=== PATIENT | female | born 1965 | race African-American/Black ===

== ENCOUNTER 2019-08-24 15:32 | Emergency (ER) | payer OTHER ==
[2019-08-24 15:39] VITALS: BMI 41.5
--- NOTE | 2019-08-24 16:16 | PDOC ---
History of Present Illness - General History Source: Patient Exam Limitations: No Limitations - History of Present Illness Initial Comments: 08/24/19 16:21 54 yo female pmh HTN (not taking medication for BP for 3 years, no insurance) presents to the ED after 2 days of left ear pain and 1 day of left facial droop. Pt states she had her flu shot 2 days and noted sudden onset sharp left ear pain and noted at 5 am yesterday morning, she had a left facial droop without changes in vision, CASTREJON, confusion, neck stiffness, N/V/F/C, ataxia, weakness or sensory deficits on 1 side of her body. Pt denies recent travel or being in a wooded area. Denies CP, SOB, abdominal pain, changes in bowel or bladder habits <John Hannah - Last Filed: 08/24/19 17:40> <Yaneli Huitron - Last Filed: 08/26/19 02:44> - General Chief Complaint: Facial Droop Stated Complaint: R/O CVA Time Seen by Provider: 08/24/19 15:55 Past History - Past Medical History COPD: No HTN: Yes - Psycho Social/Smoking Cessation Hx Smoking History: Never smoked Hx Alcohol Use: No Drug/Substance Use Hx: No <John Hannah - Last Filed: 08/24/19 17:40> <Yaneli Huitron - Last Filed: 08/26/19 02:44> - Past Medical History Allergies/Adverse Reactions: Allergies Allergy/AdvReac Type Severity Reaction Status Date / Time No Known Allergies Allergy Verified 08/24/19 15:39 Home Medications: Ambulatory Orders Acyclovir [Zovirax -] 400 mg PO 5XD #35 tablet 08/24/19 Amlodipine Besylate [Norvasc -] 5 mg PO DAILY #7 tablet 08/24/19 Ocular Lubricant Ophth Oint [Lacri-Lube Eye Ointment -] 1 applic OU DAILY #1 tube 08/24/19 Peg 400/Hypromellose/Glycerin [Artificial Tears Drops] 15 ml OP PRN #1 drops 08/04 Prednisone [Prednisone 50 MG TABLETS] 60 mg PO DAILY #7 tablet 08/24/19 Review of Systems - Review of Systems Constitutional: No: Chills, Fever HEENTM: No: Blurred Vision, Double Vision Respiratory: No: Shortness of Breath Cardiac (ROS): No: Chest Pain, Edema ABD/GI: No: Constipated, Diarrhea, Nausea, Vomiting : No: Burning, Dysuria, Frequency, Flank Pain Musculoskeletal: No: Muscle Weakness Neurological: Yes: Other (left facial droop). No: Headache, Numbness, Paresthesia, Tingling, Tremors, Weakness, Ataxia <John Hannah - Last Filed: 08/24/19 17:40> *Physical Exam - Vital Signs Last Vital Signs Temp Pulse Resp BP Pulse Ox 97.6 F 128 H 16 208/109 H 100 08/24/19 15:36 08/24/19 15:36 08/24/19 15:36 08/24/19 15:36 08/24/19 15:36 - Physical Exam General Appearance: Yes: Nourished, Appropriately Dressed. No: Apparent Distress HEENT: positive: EOMI, ABRAHAM, Normal Voice, TMs Normal, Pharynx Normal, Hearing Grossly Normal. negative: Photophobia, TM Erythema, Lesions Neck: positive: Supple. negative: Carotid bruit Respiratory/Chest: positive: Lungs Clear, Normal Breath Sounds. negative: Respiratory Distress, Accessory Muscle Use, Crackles, Rales, Rhonchi, Stridor, Wheezing Cardiovascular: positive: S1, S2, Tachycardia. negative: Edema, JVD, Murmur Vascular Pulses: Dorsalis-Pedis (R): 4+, Doralis-Pedis (L): 4+ Gastrointestinal/Abdominal: positive: Flat, Soft. negative: Pulsatile Mass, Protuberent, Distended, Guarding, Rebound, Tenderness Musculoskeletal: negative: CVA Tenderness Extremity: positive: Normal Capillary Refill, Normal Inspection, Normal Range of Motion Integumentary: positive: Normal Color, Dry, Warm Neurologic: positive: Fully Oriented, Alert, Normal Mood/Affect, Normal Response , Motor Strength 5/5, Facial Droop (left). negative: toucher up II-XII NML intact (CN 7 left not intact, otherwise, 2-12 intact), Numbness, Sensory Deficit, Finger to Nose (normal), Confused, Disoriented <John Hannah - Last Filed: 08/24/19 17:40> - Vital Signs Last Vital Signs Temp Pulse Resp BP Pulse Ox 98.6 F 104 H 23 H 202/103 H 100 08/24/19 18:14 08/24/19 18:14 08/24/19 18:14 08/24/19 18:14 08/24/19 18:14 <Yaneli Huitron - Last Filed: 08/26/19 02:44> ED Treatment Course - ADDITIONAL ORDERS Additional order review: Laboratory Results 08/24/19 18:02 POC Glucometer 133 08/24/19 18:02 POC Glucometer 133 - Medications Given in the ED: ED Medications Discontinued Medications Generic Name Dose Route Start Last Admin Trade Name Jerome PRN Reason Stop Dose Admin Acyclovir 400 mg 08/24/19 16:34 08/24/19 17:00 Zovirax - PO 08/24/19 16:35 400 mg ONCE ONE Administration Amlodipine Besylate 5 mg 08/24/19 17:14 08/24/19 17:25 Norvasc - PO 08/24/19 17:15 5 mg ONCE ONE Administration Prednisone 60 mg 08/24/19 16:35 08/24/19 17:00 Deltasone - PO 08/24/19 16:36 60 mg ONCE ONE Administration <Yaneli Huitron - Last Filed: 08/26/19 02:44> Medical Decision Making - Medical Decision Making 08/24/19 16:39 54 yo female pmh HTN (not taking medication for BP for 3 years, no insurance) presents to the ED after 2 days of left ear pain and 1 day of left facial droop. Pt states she had her flu shot 2 days and noted sudden onset sharp left ear pain and noted at 5 am yesterday morning, she had a left facial droop without changes in vision, CASTREJON, confusion, neck stiffness, N/V/F/C, ataxia, weakness or sensory deficits on 1 side of her body. Pt denies recent travel or being in a wooded area. Denies CP, SOB, abdominal pain, changes in bowel or bladder habits DDX INLT: Stroke vs [place] Neuro exam shows left sided facial droop with right forehead sparing when asked to raise eye brows. Otherwise, neuro exam normal Pt likely suffering from bells palsy, given steroids an antivirals, will dc home on those medication as well as artificial tears discussed case with Dr. Cohen , states he will be in the ED in 30 min for another pt and will assess at that time. 08/24/19 17:17 Dr. Cohen agrees pt suffering from bells palsy and will f/u in office as an outpatient Pt will be given PCP [facility] as well <John Hannah - Last Filed: 08/24/19 17:40> - Medical Decision Making please see attg documentation left peripheral CN VII palsy, forehead involved, so most consistent with peripheral bells and less likely CVA/stroke treating as palacio's f/u neuro, meds acyclovir, steroids, supportive measures, 08/26/19 02:43 <Yaneli Huitron - Last Filed: 08/26/19 02:44> Discharge - Discharge Information Problems reviewed: Yes - Admission No <John Hannah - Last Filed: 08/24/19 17:40> <Yaneli Huitron - Last Filed: 08/26/19 02:44> - Discharge Information Clinical Impression/Diagnosis: Palacio's palsy Condition: Stable Disposition: HOME - Additional Discharge Information Prescriptions: Acyclovir [Zovirax -] 400 mg PO 5XD #35 tablet Amlodipine Besylate [Norvasc -] 5 mg PO DAILY #7 tablet Ocular Lubricant Ophth Oint [Lacri-Lube Eye Ointment -] 1 applic OU DAILY #1 tube Peg 400/Hypromellose/Glycerin [Artificial Tears Drops] 15 ml OP PRN #1 drops Prednisone [Prednisone 50 MG TABLETS] 60 mg PO DAILY #7 tablet - Follow up/Referral Referrals: Robert Cohen MD [Staff Physician] - [facility] [place] [Provider Group] - Patient Discharge Instructions Patient Printed Discharge Instructions: DI for Palacio's Palsy, High Blood Pressure (Hypertension) (Alternative Therapy), Essential Hypertension Additional Instructions: Please see the Primary Doctor referred to you as soon as possible to have your blood pressure controlled. Take all the medication sent to your Pharmacy as prescribed. See the Neurologist referred to you and make an appointment in clinic. Return to the ER for new or concerning symptoms including but not limited to: changes in vision, headaches or weakness/sensory changes on 1 side of your body. you have been started on amlodipine low dose daily for management of your high blood pressure slowly. Use lacri lube at night time and use the artificial tears both purchased over the counter to lubricate your eyes and prevent corneal abrasion please keep your eye covered at nighttime when you sleep take the acyclovir five times a day for the next one week take the prednisone daily for the next 1 week, starting tomorrow evening Thank you - Post Discharge Activity Work/Back to School Note: Back to Work
[2019-08-24] MEDS ORDERED: ACYCLOVIR 400 MG TABLET PO ONE (16:34)
--- NOTE | 2019-08-24 16:34 | PDOC ---
Attending Attestation - Resident Resident Name: John Hannah - ED Attending Attestation I have performed the following: I have examined & evaluated the patient, The case was reviewed & discussed with the resident, I agree w/resident's findings & plan - HPI HPI: 08/24/19 16:33 54-year-old female with poorly controlled hypertension, has not followed up or taking any medications, presenting with left ear pain x2 days, associated with left facial palsy since yesterday. She cannot drink without drooling, left eye is unable to be closed. Denies any fevers or chills, focal paresthesias or weakness, altered mental status, seizure, cough, congestion, nausea vomiting or diarrhea. - Physicial Exam PE: 08/24/19 16:56 Agree with the resident's HPI and PE as documented in the electronic medical record. NAD, well appearing, EOMI, PERRL, nl conjunctiva, anicteric; bilateral T.M and auditory canal clear. neck supple. lungs clear, RRR, abdomen soft nontender. no rebound, guarding. Back nontender. DELEON x4, No peripheral edema. normal color for ethnicity, WWP. Alert, oriented appropriately. +left peripheral facial nerve palsy, unable to raise eyebrows, left lower facial droop. Strength prox and distally 5/5 throughout. Sensation grossly intact to light touch. DELEON x4. No cerebellar signs, no dysmetria, bilateral finger to nose and heel to mo equal and symmetric. Speech clear. 08/24/19 18:24 - Medical Decision Making 08/24/19 17:38 Vital Signs Temp Pulse Resp BP Pulse Ox 97.6 F 128 H 16 208/109 H 100 08/24/19 15:36 08/24/19 15:36 08/24/19 15:36 08/24/19 15:36 08/24/19 15:36 Symptoms are most consistent with a peripheral facial nerve palsy involving the left side, unilateral Palacio's palsy. Neurologically intact, no focal neurologic deficits aside from the left cranial nerve VII palsy. Alert and appropriately oriented, gait is stable, neurologic exam is within normal limits. Discussed case with neurologist on-call, Dr. Cohen - agree with plan We will treat patient with 1 wk course of steroids and acyclovir, eyepatch at nighttime, Lacri-Lube and artificial tears to maintain moisture in the affected left eye. Patient will follow-up outpatient with Dr Cohen. pt also with uncontrolled HTN< not not meds, due to 200s/100s, doubt any evidence of end organ damage, check fingerstick, normoglycemic start amlodipine. BP downtrended while here, tachy also downtrending, but pt admits to being anxiousl no cp or sob, dizziness, syncope. also presenting with left palacio's palsy so treating underlying cause ekg unremarkable, nonspecific T waave abnormalities, but no ekg st segment derangements. Primary care followup and referral given to Jorge geller to f/u on hypertension which is established but pt has not been taking any medications or started seeing primary yet return precautions, stable condition. pt verbalized understanding of impression and plan, exam and management 08/24/19 18:18 08/24/19 18:25 08/24/19 18:25 Heart Score/ECG Review #1 ECG reviewed & interpreted by me at: 17:30 General ECG Interpretation: Sinus Rhythm, Normal Rate, Normal Intervals Compared to previous ECG there are: Previous ECG unavail 08/24/19 18:17 Normal sinus rhythm at 91 bpm, nonspecific T wave abnormalities are noted, no prior. No ST segment elevation or depressions. qtc interval borderline at 470 ms. 08/24/19 18:19
[2019-08-24] MEDS ORDERED: predniSONE 20 MG TABLET (UD) PO ONE (16:35)
[2019-08-24] MEDS ORDERED: predniSONE 20 MG TABLET (UD) ONE (16:56)
[2019-08-24] MEDS ORDERED: ACYCLOVIR 200 MG CAPSULE ONE (16:57)
[2019-08-24] MEDS ORDERED: amLODIPine BESYLATE 5 MG TABLET (FP) PO ONE (17:14)
[2019-08-24] MEDS ORDERED: amLODIPine BESYLATE 5 MG TABLET (FP) ONE (17:16)
--- NOTE | 2019-08-24 17:38 | CON.NEURO ---
Consult - Alcohol/Substance Use Hx Alcohol Use: No - Smoking History Smoking history: Never smoked Home Medications - Allergies Allergies/Adverse Reactions: Allergies Allergy/AdvReac Type Severity Reaction Status Date / Time No Known Allergies Allergy Verified 08/24/19 15:39 - Home Medications Home Medications: Ambulatory Orders Amlodipine Besylate [Norvasc -] 5 mg PO DAILY #7 tablet 08/24/19 Prednisone [Prednisone 50 MG TABLETS] 60 mg PO DAILY #7 tablet 08/24/19 Physical Exam-Neuro Vital Signs: Vital Signs Temperature 97.6 F 08/24/19 15:36 Pulse Rate 128 H 08/24/19 15:36 Respiratory Rate 16 08/24/19 15:36 Blood Pressure 208/109 H 08/24/19 15:36 O2 Sat by Pulse Oximetry (%) 100 08/24/19 15:36 Assessment/Plan left sided bells palsy HPI 54 year old female hsitory of HTN, not taking medication. Patient came to hospital for facial palsy and left ear pain. Her bp was raised in ed. Patient denies any other focal neurological symptoms. No vision, no dysphagia, diplopia , no motor weakness or sensory symptoms PMH as above Medication none Allergies/Adverse Reactions: Allergies Allergy/AdvReac Type Severity Reaction Status Date / Time No Known Allergies Allergy Verified 08/24/19 15:39 ROS,FH, SH normal NEUROLOGICAL EXAMIANTION Alert oriented x 3, left facial palsy LMN type, and eomi, pupils reactive rest of neuro exam is noraml ct head not done assessment/plan [place] Palsy PLAN: Steroid 40 mg po for five days -Acyclovir fir five days follow up outpatient Thanking you so much Mainor Cohen MD
[2019-08-24 18:16] VITALS: TEMP 98.6
[2019-08-24 18:45] VITALS: BP 182/100; PULSE 100
--- NOTE | 2019-08-25 12:19 | EKG ---
Test Reason : Blood Pressure : / mmHG Vent. Rate : 091 BPM Atrial Rate : 091 BPM P-R Int : 178 ms QRS Dur : 084 ms QT Int : 382 ms P-R-T Axes : 053 032 050 degrees QTc Int : 469 ms NORMAL SINUS RHYTHM POSSIBLE LEFT ATRIAL ENLARGEMENT T WAVE ABNORMALITY, CONSIDER ANTERIOR ISCHEMIA PROLONGED QT ABNORMAL ECG NO PREVIOUS ECGS AVAILABLE Confirmed by ABBE CORONA MD ([id number]) on 08/25/2019 12:19:28 PM Referred By: Confirmed By:ABBE CORONA MD
== END 2019-08-24 18:35 | disposition home or self-care (01) ==
LOC: JER 15:32
DX: G51.0 Bell's palsy (principal); I10 Essential (primary) hypertension; Z91.14 Patient's other noncompliance with medication regimen
CPT/HCPCS: 82962; 93005; 93010; 99283-25

== ENCOUNTER 2024-12-03 20:16 | Emergency (ER) | payer OTHER ==
[2024-12-03 20:25] VITALS: BP 117/67; PULSE 71; RESP 19; TEMP 97.6; BMI 41.5
[2024-12-03] MEDS ORDERED: DIPHTH,PERTUSS(ACELL),TET 0.5 ML DISP.SYRIN IM ONE (23:47)
[2024-12-03] MEDS: DIPHTH,PERTUSS(ACELL),TET 0.5 ML DISP.SYRIN IM ONE (23:49)
== END 2024-12-04 00:47 | disposition home or self-care (01) ==
LOC: JERFT 20:16
PROC: 0HQ1XZZ Repair Face Skin, External Approach (ICD-10-PCS; principal; 2024-12-03)
PROC: 3E0234Z Introduction of Serum, Toxoid and Vaccine into Muscle, Percutaneous Approach (ICD-10-PCS; 2024-12-03)
DX: S01.81XA Laceration without foreign body of other part of head, initial encounter (principal); W01.198A Fall on same level from slipping, tripping and stumbling with subsequent striking against other object, initial encounter; Z23 Encounter for immunization
CPT/HCPCS: 70450-TC; 90715; 99284-25